=== PATIENT | female | born 1930 | race Hispanic/Latino ===

== ENCOUNTER 2017-10-15 05:58 | Day surgery (SDC) | payer MEDICARE ==
[2017-10-13 14:40] VITALS: BP 188/83
[2017-10-13 15:42] LABS: BASOPHILS % (AUTO) 0.4 % (0.0-5.0); EOSINOPHILS % (AUTO) 2.3 % (0.0-8.0); HEMATOCRIT 35.7 % (36-48); LYMPHOCYTES % (AUTO) 27.6 % (21.0-51.0); MEAN CORPUSCULAR HEMOGLOBIN 30.4 pg (27.0-33.0); MEAN CORPUSCULAR HGB CONC 33.2 g/dL (32.0-36.0); MEAN CORPUSCULAR VOLUME 91.5 fL (79-99); MONOCYTES % (AUTO) 7.6 % (3.0-13.0); NEUTROPHILS % (AUTO) 62.1 % (40.0-77.0); PLATELET COUNT (AUTO) 249 K/uL (130-400); RED CELL DISTRIBUTION WIDTH 15.3 % (11.0-15.5); WHITE BLOOD COUNT (AUTO) 8.4 K/uL (4.8-10.8)
[2017-10-13 15:54] LABS: CREATININE 1.2 mg/dL (0.5-1.5); POTASSIUM 4.4 mmol/L (3.5-5.1)
[2017-10-13 15:58] LABS: INR 0.98 (0.85-1.15); PROTHROMBIN TIME 10.3 SEC (9.6-11.6)
[2017-10-15] VITALS (10 sets, daily range): BP systolic 126–206; BP diastolic 44–98
[~2017-10-15] VITALS: Ht 148.6 cm; Wt 66.7 kg
[~2017-10-15 05:58] MED LIST: ALLO100T PO; ASPI-1181 PO; FURO20TA4 PO; GLIP10TA9 PO; LOSA25TA21 PO; METF10004 PO; MIRT15TA6 PO; NITR0.4T50 SL; SERT50TA12 PO
[2017-10-15] MEDS ORDERED: CEFAZOLIN SODIUM 1 GM VIAL IVP SCH (06:00)
[2017-10-15] MEDS ORDERED: SODIUM CHLORIDE 0.9% 1000ML 1,000 ML IV SCH (06:00)
[2017-10-15] MEDS ORDERED: CEFAZOLIN 1GM / D5W 50ML 150 ML ONE (07:10)
[2017-10-15] MEDS ORDERED: LIDOCAINE HCL 1% MDV 50ML VIAL ONE (07:10)
[2017-10-15] MEDS ORDERED: BUPIVACAINE/PF 0.25% 30ML VIAL IJ ONE (07:10)
[2017-10-15] MEDS ORDERED: MIDAZOLAM HCL 1 MG/ML 2ML VIAL ONE ×2 (07:33→08:10)
[2017-10-15] MEDS ORDERED: MEPERIDINE-PF 25 MG/ML SYG ONE ×2 (07:33→08:10)
[2017-10-15] MEDS ORDERED: ACETAMINOPHEN-CODEINE 300/30MG TAB PO PRN ×3 (09:30)
[2017-10-15] MEDS ORDERED: NITROGLYCERIN 0.4 MG SL TAB SL PRN (09:30)
[2017-10-15] MEDS ORDERED: ACETAMINOPHEN 325 MG TAB PO PRN (09:30)
[2017-10-15] MEDS ORDERED: TYL3 PO (09:31)
[2017-10-15] MEDS ORDERED: METFORMIN HCL 500 MG TABLET PO SCH (17:00)
[2017-10-15] MEDS ORDERED: MIRTAZAPINE 15 MG TABLET PO SCH (21:00)
[2017-10-15] MEDS ORDERED: SERTRALINE HCL 50 MG TABLET PO SCH (21:00)
[2017-10-16] MEDS ORDERED: LOSARTAN 50 MG TABLET PO SCH (09:00)
[2017-10-16] MEDS ORDERED: ASPIRIN 81 MG EC TAB PO SCH (09:00)
[2017-10-16] MEDS ORDERED: ALLOPURINOL 100 MG TABLET PO SCH (09:00)
[2017-10-16] MEDS ORDERED: FUROSEMIDE 20 MG TABLET PO SCH (09:00)
[2017-10-16] MEDS ORDERED: GLIPIZIDE 5 MG TABLET PO SCH (17:00)
== END 2017-10-15 13:30 | disposition home or self-care (01) ==
LOC: DAH 05:58
PROVIDERS: ATTEND Internal Medicine Cardiovascular Disease
DX: Z45.02 Encounter for adjustment and management of automatic implantable cardiac defibrillator (principal); I50.42 Chronic combined systolic (congestive) and diastolic (congestive) heart failure; Z95.1 Presence of aortocoronary bypass graft; I10 Essential (primary) hypertension; E11.9 Type 2 diabetes mellitus without complications; K21.9 Gastro-esophageal reflux disease without esophagitis; K59.09 Other constipation
CPT/HCPCS: 33264; 36415; 80048; 82948 ×2; 85025; 85610; 85730; 93005; 99156; 99157; A4606; C1882; J0690; J2175 ×2; J2250 ×2; J3490 ×2; J7030; 99152; 99153

== ENCOUNTER 2018-06-19 09:51 | Inpatient (IN) | payer MEDICARE ==
[2018-06-18] MEDS: ATORVASTATIN CALCIUM 10 MG TABLET PO SCH (21:00)
[~2018-06-19] VITALS: Ht 149.9 cm; Wt 64.5 kg
[~2018-06-19 09:51] MED LIST changes: +APIX5TAB PO; -GLIP10TA9 PO; +LOSA25TA16 PO; -LOSA25TA21 PO; +METF-444 PO; -METF10004 PO; -NITR0.4T50 SL; +ROSU5TAB11 PO
[2018-06-19 10:31] LABS: BASOPHILS % (AUTO) 0.5 % (0.0-5.0); EOSINOPHILS % (AUTO) 0.7 % (0.0-8.0); HEMATOCRIT 28.1 % (36-48); LYMPHOCYTES % (AUTO) 10.6 % (21.0-51.0); MEAN CORPUSCULAR HEMOGLOBIN 27.8 pg (27.0-33.0); MEAN CORPUSCULAR HGB CONC 31.4 g/dL (32.0-36.0); MEAN CORPUSCULAR VOLUME 88.6 fL (79-99); MONOCYTES % (AUTO) 6.4 % (3.0-13.0); NEUTROPHILS % (AUTO) 81.8 % (40.0-77.0); PLATELET COUNT (AUTO) 334 K/uL (130-400); RED BLOOD CELL COUNT(AUTO) 3.17 MIL/uL (4.00-5.50); RED CELL DISTRIBUTION WIDTH 17.9 % (11.0-15.5); WHITE BLOOD COUNT (AUTO) 11.8 K/uL (4.8-10.8)
[2018-06-19] MEDS ORDERED: ASPIRIN 325 MG TABLET ONE (10:40)
[2018-06-19 11:16] LABS: CREATININE 1.5 mg/dL (0.5-1.5); POTASSIUM 5.4 mmol/L (3.5-5.1)
[2018-06-19 11:22] LABS: INR 1.12 (0.85-1.15); PARTIAL THROMBOPLASTIN TIME 52.7 SEC (26.3-35.5); PROTHROMBIN TIME 11.7 SEC (9.6-11.6)
[2018-06-19 11:24] LABS: ALBUMIN 3.1 g/dL (3.5-5.0); BILIRUBIN,TOTAL 0.5 mg/dL (0.2-1.0); TOTAL PROTEIN, SERUM 7.5 g/dL (6.0-8.3)
[2018-06-19 12:17] LABS: APPEARANCE,URINE Cloudy (CLEAR); BILIRUBIN,URINE Negative (NEGATIVE); COLOR,URINE Yellow (YELLOW); GLUCOSE, URINE (UA) Negative (NEGATIVE); KETONES,URINE Negative (NEGATIVE); LEUKOCYTE ESTERASE ,URINE Trace (NEGATIVE); NITRATE,URINE Negative (NEGATIVE); OCCULT BLOOD,URINE Negative (NEGATIVE); PH,URINE 6.5 (5.0-8.0); PROTEIN,URINE Negative (NEGATIVE); UROBILINOGEN,URINE 0.2 mg/dL (0.2-1.0)
[2018-06-19 12:40] LABS: BACTERIA,URINE Rare /HPF (None Seen); RBC,URINE 0-1 /HPF (0-1); SQUAMOUS EPITHELIAL CELL,UR Few /HPF (0-2); WBC,URINE None Seen /HPF (0-1)
[2018-06-19 15:55] VITALS: BP 148/45
[2018-06-19] MEDS ORDERED: MORPHINE SULFATE 2 MG/ML 1ML SYG IVP PRN (16:00)
[2018-06-19] MEDS ORDERED: GLUCAGON 1MG KIT 1 MG ML IM PRN (16:00)
[2018-06-19] MEDS ORDERED: DEXTROSE 50%-WATER 50 ML DISP.SYRIN IV PRN (16:00)
[2018-06-19] MEDS ORDERED: IPRATROPIUM 0.5 MG/2.5 ML INH IH PRN (16:15)
[2018-06-19] MEDS ORDERED: BENZONATATE 100 MG CAPSULE PO PRN (16:15)
[2018-06-19] MEDS ORDERED: INSU100C14 SQ (16:39)
[2018-06-19] MEDS ORDERED: METF-444 PO (16:39)
[2018-06-19] MEDS ORDERED: SITA100T12 PO (16:39)
[2018-06-19] MEDS ORDERED: BENZ-51 PO (16:39)
[2018-06-19] MEDS ORDERED: GLYB5TAB8 PO (16:39)
[2018-06-19] MEDS ORDERED: METF-446 PO (16:39)
[2018-06-19] MEDS: INSULIN R PO SS1/2 SQ SCH ×2 (17:37→21:00)
[2018-06-19 18:38] LABS: CREATINE KINASE MB 2.3 ng/mL (0.5-3.6); TROPONIN I 0.06 ng/mL (0.00-0.06)
[2018-06-19 19:51] VITALS: BP 148/59
[2018-06-19] MEDS ORDERED: GUAI120L62 PO (19:53)
[2018-06-19] MEDS ORDERED: ALPR0.5T PO (19:53)
[2018-06-19] MEDS ORDERED: SODPOLY15G PO (19:53)
[2018-06-19] MEDS ORDERED: FURO10VI4 IV (19:53)
[2018-06-19] MEDS ORDERED: MIRTAZAPINE 15 MG TABLET PO SCH (21:00)
[2018-06-19] MEDS ORDERED: SERTRALINE HCL 50 MG TABLET PO SCH (21:00)
[2018-06-19] MEDS ORDERED: ENTRESTO PO SCH (21:00)
[2018-06-19] MEDS ORDERED: NON-FORMULARY MEDICATION 1 EACH (Rosuvastatin Calcium 5 MG) PO SCH (21:00)
[2018-06-19] MEDS ORDERED: APIXABAN 5 MG TABLET PO SCH (21:00)
[2018-06-19] MEDS: FUROSEMIDE 10 MG/ML 4ML VIAL IV SCH (21:02)
[2018-06-19] MEDS: ATORVASTATIN CALCIUM 10 MG TABLET PO SCH (21:02)
[2018-06-19] MEDS: ALLOPURINOL 100 MG TABLET PO SCH (21:03)
[2018-06-19] MEDS: APIXABAN 5 MG TABLET PO SCH (21:03)
[2018-06-19] MEDS: GUAIFENESIN-CODEINE 5 ML SYRUP PO PRN (21:03)
[2018-06-19] MEDS: SODIUM POLYSTYRENE SULFONATE 15 GM/60 ML ML PO SCH (21:03)
[2018-06-19] MEDS: ALPRAZOLAM 0.5 MG TABLET PO PRN (21:03)
[2018-06-19] MEDS: MIRTAZAPINE 15 MG TABLET PO SCH (21:03)
[2018-06-19] MEDS: IPRATROPIUM/ALBUTEROL SULFATE 3 ML SOLUTION IH SCH (23:12)
[2018-06-19 23:32] VITALS: BP 154/56
[2018-06-20 01:01] LABS: CREATINE KINASE MB 1.7 ng/mL (0.5-3.6); TROPONIN I 0.05 ng/mL (0.00-0.06)
[2018-06-20] MEDS: GUAIFENESIN-CODEINE 5 ML SYRUP PO PRN ×3 (03:05→22:51)
[2018-06-20 04:20] VITALS: BP 153/76
[2018-06-20] MEDS: IPRATROPIUM/ALBUTEROL SULFATE 3 ML SOLUTION IH SCH (06:13)
[2018-06-20] MEDS: INSULIN R PO SS1/2 SQ SCH ×4 (06:47→21:00)
[2018-06-20 07:01] LABS: BASOPHILS % (AUTO) 0.6 % (0.0-5.0); EOSINOPHILS % (AUTO) 1.8 % (0.0-8.0); HEMATOCRIT 25.5 % (36-48); LYMPHOCYTES % (AUTO) 19.5 % (21.0-51.0); MEAN CORPUSCULAR HEMOGLOBIN 28.4 pg (27.0-33.0); MEAN CORPUSCULAR HGB CONC 32.6 g/dL (32.0-36.0); MEAN CORPUSCULAR VOLUME 87.2 fL (79-99); MONOCYTES % (AUTO) 7.8 % (3.0-13.0); NEUTROPHILS % (AUTO) 70.3 % (40.0-77.0); NUCLEATED RED BLOOD CELLS 0.1 % (0.0-0.19); PLATELET COUNT (AUTO) 318 K/uL (130-400); RED BLOOD CELL COUNT(AUTO) 2.92 MIL/uL (4.00-5.50); RED CELL DISTRIBUTION WIDTH 17.5 % (11.0-15.5)
[2018-06-20 07:07] LABS: CREATININE 1.6 mg/dL (0.5-1.5); POTASSIUM 3.9 mmol/L (3.5-5.1)
[2018-06-20 07:49] VITALS: BP 130/61
[2018-06-20] MEDS ORDERED: NON-FORMULARY MEDICATION 1 EACH (Aspirin (Aspirin EC) 81 MG) PO SCH (09:00)
[2018-06-20] MEDS ORDERED: FUROSEMIDE 20 MG TABLET PO SCH (09:00)
[2018-06-20] MEDS ORDERED: LOSARTAN 50 MG TABLET PO SCH (09:00)
[2018-06-20] MEDS ORDERED: POTASSIUM CHLORIDE 10 MEQ/TAB.SA PO SCH (09:00)
[2018-06-20] MEDS: SERTRALINE HCL 50 MG TABLET PO SCH (10:20)
[2018-06-20] MEDS: PANTOPRAZOLE SODIUM 40 MG TABLET.DR PO SCH (10:20)
[2018-06-20] MEDS: APIXABAN 5 MG TABLET PO SCH (10:20)
[2018-06-20] MEDS: ASPIRIN 81MG TAB.CHEW PO SCH (10:20)
[2018-06-20] MEDS: FUROSEMIDE 10 MG/ML 4ML VIAL IV SCH ×2 (10:20→18:09)
[2018-06-20] MEDS: SULFAMETHOX-TMP DS 800/160 TAB PO SCH (10:20)
[2018-06-20] MEDS ORDERED: IPRATROPIUM/ALBUTEROL SULFATE 3 ML SOLUTION IH PRN (10:30)
[2018-06-20 10:56] VITALS: BP 141/54
[2018-06-20] MEDS ORDERED: ALLOPURINOL 100 MG TABLET PO SCH (12:00)
[2018-06-20 16:14] VITALS: BP 113/43
[2018-06-20 19:31] VITALS: BP 138/61
[2018-06-20] MEDS ORDERED: SACU1TAB PO (20:13)
[2018-06-20] MEDS: SODIUM POLYSTYRENE SULFONATE 15 GM/60 ML ML PO SCH (20:30)
[2018-06-20] MEDS: MIRTAZAPINE 15 MG TABLET PO SCH (22:05)
[2018-06-20] MEDS: APIXABAN 2.5 MG TABLET PO SCH (22:05)
[2018-06-20] MEDS: ATORVASTATIN CALCIUM 10 MG TABLET PO SCH (22:05)
[2018-06-20] MEDS: ALLOPURINOL 100 MG TABLET PO SCH (22:05)
[2018-06-21] VITALS (7 sets, daily range): BP systolic 119–153; BP diastolic 49–75
[2018-06-21 04:01] LABS: ALBUMIN 2.5 g/dL (3.5-5.0); BILIRUBIN,TOTAL 0.4 mg/dL (0.2-1.0); CREATININE 2.2 mg/dL (0.5-1.5); POTASSIUM 3.8 mmol/L (3.5-5.1)
[2018-06-21] MEDS: INSULIN R PO SS1/2 SQ SCH ×4 (06:00→21:00)
[2018-06-21] MEDS: FUROSEMIDE 10 MG/ML 4ML VIAL IV SCH (07:01)
[2018-06-21] MEDS: SULFAMETHOX-TMP DS 800/160 TAB PO SCH (09:48)
[2018-06-21] MEDS: APIXABAN 2.5 MG TABLET PO SCH ×2 (09:49→22:19)
[2018-06-21] MEDS: SERTRALINE HCL 50 MG TABLET PO SCH (09:49)
[2018-06-21] MEDS: PANTOPRAZOLE SODIUM 40 MG TABLET.DR PO SCH (09:49)
[2018-06-21] MEDS: ASPIRIN 81MG TAB.CHEW PO SCH (09:49)
[2018-06-21] MEDS: VALSARTAN PO SCH ×2 (09:50→22:20)
[2018-06-21] MEDS: SACUBITRIL PO SCH ×2 (09:50→22:20)
[2018-06-21] MEDS: GUAIFENESIN-CODEINE 5 ML SYRUP PO PRN ×2 (14:00→22:17)
[2018-06-21] MEDS: SODIUM POLYSTYRENE SULFONATE 15 GM/60 ML ML PO SCH (20:30)
[2018-06-21] MEDS ORDERED: LACTULOSE 20 GM/30 ML UDCUP PO SCH (21:00)
[2018-06-21] MEDS: LACTULOSE 20 GM/30 ML UDCUP PO SCH (21:00)
[2018-06-21] MEDS ORDERED: LORAZEPAM 0.5 MG TABLET PO PRN (21:15)
[2018-06-21] MEDS: ALPRAZOLAM 0.5 MG TABLET PO PRN (22:18)
[2018-06-21] MEDS: ATORVASTATIN CALCIUM 10 MG TABLET PO SCH (22:18)
[2018-06-21] MEDS: MIRTAZAPINE 15 MG TABLET PO SCH (22:19)
[2018-06-21] MEDS: ALLOPURINOL 100 MG TABLET PO SCH (22:19)
[2018-06-22] VITALS (7 sets, daily range): BP systolic 108–170; BP diastolic 50–90
[2018-06-22 05:01] LABS: HEMATOCRIT 25.1 % (36-48); MEAN CORPUSCULAR HEMOGLOBIN 28.4 pg (27.0-33.0); MEAN CORPUSCULAR HGB CONC 32.2 g/dL (32.0-36.0); MEAN CORPUSCULAR VOLUME 88.3 fL (79-99); PLATELET COUNT (AUTO) 337 K/uL (130-400); RED BLOOD CELL COUNT(AUTO) 2.84 MIL/uL (4.00-5.50); RED CELL DISTRIBUTION WIDTH 17.7 % (11.0-15.5); WHITE BLOOD COUNT (AUTO) 11.5 K/uL (4.8-10.8)
[2018-06-22 05:06] LABS: POTASSIUM 3.6 mmol/L (3.5-5.1)
[2018-06-22] MEDS: INSULIN R PO SS1/2 SQ SCH ×4 (05:56→21:18)
[2018-06-22] MEDS: SACUBITRIL PO SCH ×2 (09:00→20:07)
[2018-06-22] MEDS: LACTULOSE 20 GM/30 ML UDCUP PO SCH ×2 (09:00→20:07)
[2018-06-22] MEDS: VALSARTAN PO SCH ×2 (09:00→20:07)
[2018-06-22] MEDS: ASPIRIN 81MG TAB.CHEW PO SCH (10:23)
[2018-06-22] MEDS: PANTOPRAZOLE SODIUM 40 MG TABLET.DR PO SCH (10:23)
[2018-06-22] MEDS: SERTRALINE HCL 50 MG TABLET PO SCH (10:23)
[2018-06-22] MEDS: SULFAMETHOX-TMP DS 800/160 TAB PO SCH (10:23)
[2018-06-22] MEDS: APIXABAN 2.5 MG TABLET PO SCH ×2 (10:23→20:06)
[2018-06-22] MEDS: CARVEDILOL 6.25 MG TABLET PO SCH ×2 (10:26→20:06)
[2018-06-22] MEDS: FUROSEMIDE 40 MG TABLET PO SCH (10:27)
[2018-06-22] MEDS: SODIUM POLYSTYRENE SULFONATE 15 GM/60 ML ML PO SCH (17:10)
[2018-06-22] MEDS: GUAIFENESIN-CODEINE 5 ML SYRUP PO PRN (17:42)
[2018-06-22] MEDS: ALPRAZOLAM 0.5 MG TABLET PO PRN (20:06)
[2018-06-22] MEDS: MIRTAZAPINE 15 MG TABLET PO SCH (20:06)
[2018-06-22] MEDS: ATORVASTATIN CALCIUM 10 MG TABLET PO SCH (20:06)
[2018-06-22] MEDS: ALLOPURINOL 100 MG TABLET PO SCH (20:07)
[2018-06-23 03:18] VITALS: BP 133/56
[2018-06-23 04:07] LABS: POTASSIUM 4.2 mmol/L (3.5-5.1)
[2018-06-23] MEDS: INSULIN R PO SS1/2 SQ SCH ×2 (05:47→13:45)
[2018-06-23] MEDS: LACTULOSE 20 GM/30 ML UDCUP PO SCH (08:00)
[2018-06-23 08:17] VITALS: BP 127/50
[2018-06-23] MEDS: VALSARTAN PO SCH (09:00)
[2018-06-23] MEDS: SACUBITRIL PO SCH (09:00)
[2018-06-23] MEDS: PANTOPRAZOLE SODIUM 40 MG TABLET.DR PO SCH (09:27)
[2018-06-23] MEDS: CARVEDILOL 6.25 MG TABLET PO SCH (09:27)
[2018-06-23] MEDS: SULFAMETHOX-TMP DS 800/160 TAB PO SCH (09:27)
[2018-06-23] MEDS: FUROSEMIDE 40 MG TABLET PO SCH (09:28)
[2018-06-23] MEDS: SERTRALINE HCL 50 MG TABLET PO SCH (09:28)
[2018-06-23] MEDS: ASPIRIN 81MG TAB.CHEW PO SCH (09:28)
[2018-06-23] MEDS: APIXABAN 2.5 MG TABLET PO SCH (09:28)
[2018-06-23] MEDS ORDERED: FURO40TA7 PO (09:43)
[2018-06-23] MEDS ORDERED: CARV6.2579 PO (09:43)
[2018-06-23] MEDS ORDERED: APIX2.5T PO (09:43)
[2018-06-23] MEDS ORDERED: ISOS30TA6 PO (09:46)
[2018-06-23] MEDS ORDERED: HYDR-3420 PO (09:46)
[2018-06-23 12:00] VITALS: BP 94/40
== END 2018-06-23 14:05 | disposition home health service (06) | DRG 291 ==
LOC: EDH 09:51 → EDHIP 14:40 → 2DH 15:32
PROVIDERS: ADMIT Internal Medicine; ATTEND Internal Medicine
DX: I13.0 Hypertensive heart and chronic kidney disease with heart failure and stage 1 through stage 4 chronic kidney disease, or unspecified chronic kidney disease (principal); I50.23 Acute on chronic systolic (congestive) heart failure; N17.1 Acute kidney failure with acute cortical necrosis; I48.92 Unspecified atrial flutter; J84.9 Interstitial pulmonary disease, unspecified; I25.10 Atherosclerotic heart disease of native coronary artery without angina pectoris; R05 Cough; E11.65 Type 2 diabetes mellitus with hyperglycemia; E87.5 Hyperkalemia; I25.5 Ischemic cardiomyopathy; E11.22 Type 2 diabetes mellitus with diabetic chronic kidney disease; E78.5 Hyperlipidemia, unspecified; G47.30 Sleep apnea, unspecified; I48.0 Paroxysmal atrial fibrillation; I48.2 Chronic atrial fibrillation; K21.9 Gastro-esophageal reflux disease without esophagitis; N18.9 Chronic kidney disease, unspecified; I25.2 Old myocardial infarction; Z79.01 Long term (current) use of anticoagulants; Z85.528 Personal history of other malignant neoplasm of kidney; Z90.5 Acquired absence of kidney; Z95.0 Presence of cardiac pacemaker; Z95.1 Presence of aortocoronary bypass graft
CPT/HCPCS: 36415; 71045; 71250; 80048; 80053; 81001; 82550; 82553; 82948; 83874; 83880; 84484; 85025; 85027; 85610; 85730; 93005; 94060; 94640; 94664; 97039; J1815; J1940; Q2038

== ENCOUNTER 2018-07-01 17:14 | Inpatient (IN) | payer MEDICARE ==
[~2018-07-01] VITALS: Ht 144.8 cm; Wt 65.9 kg
[~2018-07-01 17:14] MED LIST changes: +ALPR0.5T PO; +APIX2.5T PO; -APIX5TAB PO; +BENZ-51 PO; +CARV6.2579 PO; -FURO20TA4 PO; +FURO40TA7 PO; +GLYB5TAB8 PO; +GUAI120L62 PO; +HYDR-3420 PO; +INSU100C14 SQ; +ISOS30TA6 PO; -LOSA25TA16 PO; +METF-446 PO; +SITA100T12 PO; +SODPOLY15G PO
[2018-07-01] MEDS ORDERED: ACETAMINOPHEN 325 MG TAB PO PRN (18:00)
[2018-07-01] MEDS ORDERED: ONDANSETRON HCL 4 MG/2 ML VIAL IV PRN (18:00)
[2018-07-01 18:01] VITALS: BP 139/67
[2018-07-01] MEDS ORDERED: ALPRAZOLAM 0.5 MG TABLET PO PRN (18:30)
[2018-07-01 18:33] LABS: HEMATOCRIT 23.3 % (36-48); MEAN CORPUSCULAR HEMOGLOBIN 27.1 pg (27.0-33.0); MEAN CORPUSCULAR HGB CONC 31.2 g/dL (32.0-36.0); MEAN CORPUSCULAR VOLUME 87.1 fL (79-99); PLATELET COUNT (AUTO) 290 K/uL (130-400); RED BLOOD CELL COUNT(AUTO) 2.67 MIL/uL (4.00-5.50); RED CELL DISTRIBUTION WIDTH 17.9 % (11.0-15.5); WHITE BLOOD COUNT (AUTO) 10.9 K/uL (4.8-10.8)
[2018-07-01] MEDS ORDERED: GLUCAGON 1MG KIT 1 MG ML IM PRN (18:45)
[2018-07-01] MEDS ORDERED: POTASSIUM CHLORIDE 20MEQ/100ML 100 ML IV PRN (18:45)
[2018-07-01] MEDS ORDERED: SODIUM CHLORIDE 0.9% 10 ML VIAL IVP SCH (18:45)
[2018-07-01] MEDS ORDERED: DEXTROSE 50%-WATER 50 ML DISP.SYRIN IV PRN (18:45)
[2018-07-01] MEDS ORDERED: POTASSIUM CHLORIDE 10% ELIXIR 20 MEQ/15 ML UDCUP PO PRN (18:45)
[2018-07-01] MEDS ORDERED: LIDOCAINE HCL-MPF 1% 2ML VIAL IJ PRN (18:45)
[2018-07-01] MEDS: FUROSEMIDE IVP SCH (18:49)
[2018-07-01] MEDS: [UNRECOGNIZED DRUG - OTHER] IVP SCH (18:49)
[2018-07-01 18:50] LABS: INR 1.15 (0.85-1.15); PARTIAL THROMBOPLASTIN TIME 41.5 SEC (26.3-35.5)
[2018-07-01 18:52] LABS: ALBUMIN 2.6 g/dL (3.5-5.0); BILIRUBIN,TOTAL 0.4 mg/dL (0.2-1.0); CREATININE 1.6 mg/dL (0.5-1.5); POTASSIUM 3.6 mmol/L (3.5-5.1); TOTAL PROTEIN, SERUM 7.1 g/dL (6.0-8.3)
[2018-07-01 19:06] LABS: B-TYPE NATRIURETIC PEPTIDE 1280 pg/mL (0-100)
[2018-07-01 19:39] VITALS: BP 142/61
[2018-07-01] MEDS: BENZONATATE 100 MG CAPSULE PO SCH (20:11)
[2018-07-01] MEDS: CARVEDILOL 6.25 MG TABLET PO SCH (20:11)
[2018-07-01] MEDS: HYDRALAZINE HCL 10 MG TABLET PO SCH (20:12)
[2018-07-01] MEDS: MIRTAZAPINE 15 MG TABLET PO SCH (20:12)
[2018-07-01 20:26] LABS: APPEARANCE,URINE Clear (CLEAR); BILIRUBIN,URINE Negative (NEGATIVE); COLOR,URINE Yellow (YELLOW); GLUCOSE, URINE (UA) 500 mg/dL (NEGATIVE); KETONES,URINE Negative (NEGATIVE); LEUKOCYTE ESTERASE ,URINE Negative (NEGATIVE); NITRATE,URINE Negative (NEGATIVE); OCCULT BLOOD,URINE Negative (NEGATIVE); PROTEIN,URINE Negative (NEGATIVE); UROBILINOGEN,URINE 0.2 mg/dL (0.2-1.0)
[2018-07-01 20:38] LABS: BACTERIA,URINE None Seen /HPF (None Seen); RBC,URINE None Seen /HPF (0-1); SQUAMOUS EPITHELIAL CELL,UR 0-2 /HPF (0-2); WBC,URINE None Seen /HPF (0-1)
[2018-07-01] MEDS ORDERED: APIXABAN 2.5 MG TABLET PO SCH (21:00)
[2018-07-01] MEDS ORDERED: ATORVASTATIN CALCIUM 10 MG TABLET PO SCH (21:00)
[2018-07-01] MEDS ORDERED: MIRTAZAPINE 15 MG TABLET PO SCH (21:00)
[2018-07-01] MEDS: INSULIN R PO SSI SQ SCH (21:48)
[2018-07-01 23:54] VITALS: BP 114/53
[2018-07-02] MEDS: POTASSIUM CHLORIDE 20 MEQ ERTAB PO PRN ×3 (01:15→04:43)
[2018-07-02 03:46] VITALS: BP 112/55
[2018-07-02 04:17] LABS: CREATININE 1.4 mg/dL (0.5-1.5); POTASSIUM 3.3 mmol/L (3.5-5.1)
[2018-07-02] MEDS: INSULIN R PO SSI SQ SCH ×2 (06:18→11:56)
[2018-07-02 07:58] VITALS: BP 140/53
[2018-07-02] MEDS: HYDRALAZINE HCL 10 MG TABLET PO SCH ×2 (08:25→21:36)
[2018-07-02] MEDS: ASPIRIN 81MG TAB.CHEW PO SCH (08:26)
[2018-07-02] MEDS: CARVEDILOL 6.25 MG TABLET PO SCH ×2 (08:26→21:35)
[2018-07-02] MEDS: PANTOPRAZOLE SODIUM 40 MG TABLET.DR PO SCH (08:27)
[2018-07-02] MEDS: POTASSIUM CHLORIDE 10 MEQ/TAB.SA PO SCH ×2 (08:27→21:35)
[2018-07-02] MEDS: BENZONATATE 100 MG CAPSULE PO SCH ×3 (08:27→21:35)
[2018-07-02] MEDS: ISOSORBIDE MONO 30MG TAB SR PO SCH (08:27)
[2018-07-02] MEDS: ALLOPURINOL 300 MG TABLET PO SCH (08:28)
[2018-07-02] MEDS ORDERED: NON-FORMULARY MEDICATION 1 EACH (Aspirin (Aspirin EC) 81 MG) PO SCH (09:00)
[2018-07-02 11:04] VITALS: BP 112/47
[2018-07-02] MEDS ORDERED: PHARMACY COMMUNICATION MISC SCH ×2 (11:45→15:30)
[2018-07-02] MEDS: MAGNESIUM HYDROXIDE 30 ML/UDCUP PO SCH (11:51)
[2018-07-02] MEDS: FERROUS FUMARATE 324 MG TABLET PO SCH ×2 (11:54→21:35)
[2018-07-02] MEDS: FUROSEMIDE IVP SCH (15:50)
[2018-07-02] MEDS: [UNRECOGNIZED DRUG - OTHER] IVP SCH (15:50)
[2018-07-02 16:00] VITALS: BP 132/56
[2018-07-02] MEDS: INSULIN R PO SS1/2 SQ SCH (17:04)
[2018-07-02 19:54] VITALS: BP 128/60
[2018-07-02] MEDS: MIRTAZAPINE 15 MG TABLET PO SCH (21:34)
[2018-07-02] MEDS: DOCUSATE SODIUM 100 MG CAP PO SCH (21:35)
[2018-07-02 23:46] VITALS: BP 126/50
[2018-07-03 03:57] LABS: HEMATOCRIT 23.6 % (36-48); MEAN CORPUSCULAR HEMOGLOBIN 26.3 pg (27.0-33.0); MEAN CORPUSCULAR HGB CONC 30.5 g/dL (32.0-36.0); MEAN CORPUSCULAR VOLUME 86.1 fL (79-99); PLATELET COUNT (AUTO) 299 K/uL (130-400); RED BLOOD CELL COUNT(AUTO) 2.74 MIL/uL (4.00-5.50); RED CELL DISTRIBUTION WIDTH 18.1 % (11.0-15.5); WHITE BLOOD COUNT (AUTO) 12.4 K/uL (4.8-10.8)
[2018-07-03 03:58] VITALS: BP 127/57
[2018-07-03 04:23] LABS: % IRON SATURATION 62.7 % (22-44)
[2018-07-03 04:26] LABS: ALBUMIN 2.7 g/dL (3.5-5.0); BILIRUBIN,TOTAL 0.4 mg/dL (0.2-1.0); CREATININE 1.5 mg/dL (0.5-1.5); PHOSPHORUS 3.3 mg/dL (2.5-4.9); POTASSIUM 3.8 mmol/L (3.5-5.1); THYROID STIMULATING HORMONE 5.19 uIU/mL (0.36-3.74); TOTAL PROTEIN, SERUM 7.3 g/dL (6.0-8.3); URIC ACID 7.1 mg/dL (2.6-7.2)
[2018-07-03 05:02] LABS: ERYTHROCYTE SEDIMENTATION RATE 97 MM/HR (0-30)
[2018-07-03] MEDS: INSULIN R PO SS1/2 SQ SCH (06:18)
[2018-07-03] MEDS: MAGNESIUM HYDROXIDE 30 ML/UDCUP PO SCH (07:08)
[2018-07-03 07:27] VITALS: BP 132/62
[2018-07-03 08:01] VITALS: BP 132/62
[2018-07-03] MEDS: DOCUSATE SODIUM 100 MG CAP PO SCH (08:01)
[2018-07-03] MEDS: ALLOPURINOL 300 MG TABLET PO SCH (08:01)
[2018-07-03] MEDS: POTASSIUM CHLORIDE 10 MEQ/TAB.SA PO SCH (08:01)
[2018-07-03] MEDS: FERROUS FUMARATE 324 MG TABLET PO SCH (08:01)
[2018-07-03] MEDS: CARVEDILOL 6.25 MG TABLET PO SCH (08:01)
[2018-07-03] MEDS: PANTOPRAZOLE SODIUM 40 MG TABLET.DR PO SCH (08:01)
[2018-07-03] MEDS: ASPIRIN 81MG TAB.CHEW PO SCH (08:01)
[2018-07-03] MEDS: BENZONATATE 100 MG CAPSULE PO SCH (08:01)
[2018-07-03] MEDS: ISOSORBIDE MONO 30MG TAB SR PO SCH (08:02)
[2018-07-03] MEDS ORDERED: MAGNESIUM HYDROXIDE 30 ML/UDCUP PO SCH (08:15)
[2018-07-03] MEDS ORDERED: HYDRALAZINE HCL 10 MG TABLET PO SCH (09:00)
[2018-07-03] MEDS ORDERED: FOLIC ACID/VITAMIN B COMP W-C 1 MG CAPSULE PO SCH (09:00)
[2018-07-03] MEDS ORDERED: OMEP40CA37 PO (10:01)
[2018-07-03] MEDS ORDERED: FURO40TA5 PO (10:01)
[2018-07-03] MEDS ORDERED: HYDR20VI6 IV (10:01)
[2018-07-03] MEDS ORDERED: EPOETIN ALFA 10,000 UNIT/ML VIAL SQ SCH (10:56)
[2018-07-03] MEDS ORDERED: FUROSEMIDE 40 MG TABLET PO SCH (21:00)
== END 2018-07-03 12:36 | disposition home health service (06) | DRG 291 ==
LOC: EDH 17:14 → 2AH 17:35
PROVIDERS: ADMIT Hospitalist; ATTEND Hospitalist
DX: I13.0 Hypertensive heart and chronic kidney disease with heart failure and stage 1 through stage 4 chronic kidney disease, or unspecified chronic kidney disease (principal); I50.43 Acute on chronic combined systolic (congestive) and diastolic (congestive) heart failure; D62 Acute posthemorrhagic anemia; N17.9 Acute kidney failure, unspecified; N18.4 Chronic kidney disease, stage 4 (severe); T45.515A Adverse effect of anticoagulants, initial encounter; E11.21 Type 2 diabetes mellitus with diabetic nephropathy; E11.22 Type 2 diabetes mellitus with diabetic chronic kidney disease; E66.9 Obesity, unspecified; E78.2 Mixed hyperlipidemia; E87.6 Hypokalemia; G47.30 Sleep apnea, unspecified; I25.10 Atherosclerotic heart disease of native coronary artery without angina pectoris; D63.8 Anemia in other chronic diseases classified elsewhere; I48.2 Chronic atrial fibrillation; I25.5 Ischemic cardiomyopathy; R53.81 Other malaise; F41.9 Anxiety disorder, unspecified; M10.9 Gout, unspecified; R04.0 Epistaxis; Z68.31 Body mass index [BMI] 31.0-31.9, adult; Z95.0 Presence of cardiac pacemaker; Z79.01 Long term (current) use of anticoagulants; Z95.1 Presence of aortocoronary bypass graft; Z90.5 Acquired absence of kidney; Z85.528 Personal history of other malignant neoplasm of kidney; Y92.89 Other specified places as the place of occurrence of the external cause; Z83.3 Family history of diabetes mellitus; Z82.49 Family history of ischemic heart disease and other diseases of the circulatory system; Z80.6 Family history of leukemia; Z80.51 Family history of malignant neoplasm of kidney
CPT/HCPCS: 36415; 71045; 76700; 80048; 80053; 81001; 82728; 82948; 83540; 83550; 83880; 84100; 84443; 84550; 85027; 85610; 85651; 85730; 93005; J0885; J1815; J1940

== ENCOUNTER 2018-08-02 18:21 | Inpatient (IN) | payer MEDICARE ==
[~2018-08-02] VITALS: Ht 142.2 cm; Wt 63.5 kg
[~2018-08-02 18:21] MED LIST changes: -APIX2.5T PO; +FURO40TA5 PO; -FURO40TA7 PO; -GLYB5TAB8 PO; -HYDR-3420 PO; +HYDR20VI6 IV; -METF-446 PO; +OMEP40CA37 PO; -ROSU5TAB11 PO; -SERT50TA12 PO; -SODPOLY15G PO
[2018-08-02 19:49] LABS: BASOPHILS % (AUTO) 1.1 % (0.0-5.0); HEMATOCRIT 28.9 % (36-48); LYMPHOCYTES % (AUTO) 13.8 % (21.0-51.0); MEAN CORPUSCULAR HEMOGLOBIN 26.9 pg (27.0-33.0); MEAN CORPUSCULAR VOLUME 86.9 fL (79-99); MONOCYTES % (AUTO) 12.3 % (3.0-13.0); NEUTROPHILS % (AUTO) 69.8 % (40.0-77.0); PLATELET COUNT (AUTO) 219 K/uL (130-400); RED BLOOD CELL COUNT(AUTO) 3.33 MIL/uL (4.00-5.50); RED CELL DISTRIBUTION WIDTH 21.6 % (11.0-15.5)
[2018-08-02 19:52] VITALS: BP 114/56
[2018-08-02 20:06] LABS: INR 1.06 (0.85-1.15); PARTIAL THROMBOPLASTIN TIME 35.6 SEC (26.3-35.5); PROTHROMBIN TIME 11.1 SEC (9.6-11.6)
[2018-08-02 20:08] LABS: ALBUMIN 2.5 g/dL (3.5-5.0); BILIRUBIN,TOTAL 0.6 mg/dL (0.2-1.0); MAGNESIUM 2.5 mg/dL (1.80-2.40); POTASSIUM 4.4 mmol/L (3.5-5.1); TOTAL PROTEIN, SERUM 7.1 g/dL (6.0-8.3)
[2018-08-02] MEDS ORDERED: DEXTROSE 50%-WATER 50 ML DISP.SYRIN IV PRN (20:15)
[2018-08-02] MEDS ORDERED: GLUCAGON 1MG KIT 1 MG ML IM PRN (20:15)
[2018-08-02 20:17] LABS: B-TYPE NATRIURETIC PEPTIDE 1610 pg/mL (0-100)
[2018-08-02] MEDS: CARVEDILOL 6.25 MG TABLET PO SCH (21:00)
[2018-08-02] MEDS: INSULIN HUMULIN R 100 UNIT/ML 3ML SQ SCH (21:00)
[2018-08-02 21:44] LABS: APPEARANCE,URINE Clear (CLEAR); BILIRUBIN,URINE Negative (NEGATIVE); COLOR,URINE Yellow (YELLOW); GLUCOSE, URINE (UA) Negative (NEGATIVE); KETONES,URINE Negative (NEGATIVE); LEUKOCYTE ESTERASE ,URINE Negative (NEGATIVE); NITRATE,URINE Negative (NEGATIVE); OCCULT BLOOD,URINE Negative (NEGATIVE); PH,URINE 6.5 (5.0-8.0); PROTEIN,URINE Negative (NEGATIVE); UROBILINOGEN,URINE 0.2 mg/dL (0.2-1.0)
[2018-08-02] MEDS ORDERED: POTASSIUM CHLORIDE 20MEQ/100ML 100 ML IV PRN (21:45)
[2018-08-02] MEDS ORDERED: POTASSIUM CHLORIDE 10% ELIXIR 20 MEQ/15 ML UDCUP PO PRN (21:45)
[2018-08-02] MEDS ORDERED: METOLAZONE 2.5 MG TABLET PO ONE (21:45)
[2018-08-02] MEDS ORDERED: LIDOCAINE HCL-MPF 1% 2ML VIAL IJ PRN (21:45)
[2018-08-02] MEDS: FUROSEMIDE 100 MG in SODIUM CHLORIDE 0.9% 90 ML IV SCH (22:23)
[2018-08-02] MEDS: MIRTAZAPINE 15 MG TABLET PO SCH (22:48)
[2018-08-02] MEDS: APIXABAN 2.5 MG TABLET PO SCH (22:48)
[2018-08-02 23:54] VITALS: BP 91/45
[2018-08-03] MEDS ORDERED: ACETAMINOPHEN 325 MG TAB PO PRN (01:15)
[2018-08-03] MEDS ORDERED: ACETAMINOPHEN 325 MG TAB ONE ×2 (01:16→01:17)
[2018-08-03] MEDS ORDERED: BUSP7.5T7 PO (01:50)
[2018-08-03] MEDS ORDERED: MIRT30TA6 PO (01:50)
[2018-08-03] MEDS ORDERED: HYDR-3420 PO (01:50)
[2018-08-03] MEDS ORDERED: SPIR25TA6 PO (01:50)
[2018-08-03] MEDS ORDERED: LINA5TAB PO (01:50)
[2018-08-03] MEDS ORDERED: CARV6.25 PO (01:50)
[2018-08-03] MEDS ORDERED: BENZONATATE 100 MG CAPSULE PO ONE (02:26)
[2018-08-03] MEDS: BENZONATATE 100 MG CAPSULE PO SCH ×4 (02:37→20:47)
[2018-08-03 03:48] LABS: BASOPHILS % (AUTO) 0.8 % (0.0-5.0); HEMATOCRIT 28.5 % (36-48); LYMPHOCYTES % (AUTO) 11.2 % (21.0-51.0); MEAN CORPUSCULAR HEMOGLOBIN 27.8 pg (27.0-33.0); MEAN CORPUSCULAR HGB CONC 31.8 g/dL (32.0-36.0); MEAN CORPUSCULAR VOLUME 87.5 fL (79-99); MONOCYTES % (AUTO) 10.5 % (3.0-13.0); NEUTROPHILS % (AUTO) 73.5 % (40.0-77.0); NUCLEATED RED BLOOD CELLS 0.1 % (0.0-0.19); PLATELET COUNT (AUTO) 245 K/uL (130-400); RED BLOOD CELL COUNT(AUTO) 3.26 MIL/uL (4.00-5.50); RED CELL DISTRIBUTION WIDTH 21.5 % (11.0-15.5); WHITE BLOOD COUNT (AUTO) 8.8 K/uL (4.8-10.8)
[2018-08-03 03:51] LABS: HEMOGLOBIN A1C 7.7 % (4.0-6.0)
[2018-08-03 04:05] LABS: B-TYPE NATRIURETIC PEPTIDE 1750 pg/mL (0-100)
[2018-08-03 04:13] VITALS: BP 118/69
[2018-08-03] MEDS: INSULIN HUMULIN R 100 UNIT/ML 3ML SQ SCH ×4 (06:56→20:56)
[2018-08-03 07:30] VITALS: BP 142/69
[2018-08-03] MEDS: APIXABAN 2.5 MG TABLET PO SCH ×2 (08:52→20:48)
[2018-08-03] MEDS: ALLOPURINOL 100 MG TABLET PO SCH (08:52)
[2018-08-03] MEDS: PANTOPRAZOLE SODIUM 40 MG TABLET.DR PO SCH (08:53)
[2018-08-03] MEDS: CARVEDILOL 6.25 MG TABLET PO SCH ×2 (08:53→20:48)
[2018-08-03] MEDS ORDERED: BENZONATATE 100 MG CAPSULE PO SCH (09:00)
[2018-08-03] MEDS ORDERED: METOLAZONE 2.5 MG TABLET PO SCH (09:30)
[2018-08-03 11:12] VITALS: BP 154/94
[2018-08-03 16:24] VITALS: BP 115/38
[2018-08-03] MEDS: KETOROLAC TROMETHAMINE 15MG/ML IV PRN ×2 (17:42→23:53)
[2018-08-03] MEDS: FUROSEMIDE 100 MG in SODIUM CHLORIDE 0.9% 90 ML IV SCH (17:53)
[2018-08-03 19:58] VITALS: BP 112/45
[2018-08-03] MEDS: MIRTAZAPINE 15 MG TABLET PO SCH (20:47)
[2018-08-03 23:32] VITALS: BP 114/47
[2018-08-04] MEDS: MORPHINE SULFATE 2 MG/ML 1ML SYG IVP PRN (00:52)
[2018-08-04 03:17] VITALS: BP 124/59
[2018-08-04 04:30] LABS: EOSINOPHILS % (AUTO) 4.9 % (0.0-8.0); HEMATOCRIT 27.5 % (36-48); LYMPHOCYTES % (AUTO) 16.2 % (21.0-51.0); MEAN CORPUSCULAR HEMOGLOBIN 27.4 pg (27.0-33.0); MEAN CORPUSCULAR HGB CONC 31.6 g/dL (32.0-36.0); MEAN CORPUSCULAR VOLUME 86.7 fL (79-99); MONOCYTES % (AUTO) 9.6 % (3.0-13.0); NEUTROPHILS % (AUTO) 68.3 % (40.0-77.0); NUCLEATED RED BLOOD CELLS 0.1 % (0.0-0.19); PLATELET COUNT (AUTO) 241 K/uL (130-400); RED BLOOD CELL COUNT(AUTO) 3.17 MIL/uL (4.00-5.50); RED CELL DISTRIBUTION WIDTH 21.1 % (11.0-15.5); WHITE BLOOD COUNT (AUTO) 8.7 K/uL (4.8-10.8)
[2018-08-04 04:35] LABS: CREATININE 2.2 mg/dL (0.5-1.5); POTASSIUM 3.8 mmol/L (3.5-5.1)
[2018-08-04 04:51] LABS: B-TYPE NATRIURETIC PEPTIDE 1510 pg/mL (0-100)
[2018-08-04] MEDS: INSULIN HUMULIN R 100 UNIT/ML 3ML SQ SCH ×4 (06:48→21:05)
[2018-08-04 07:47] VITALS: BP 116/50
[2018-08-04] MEDS: CARVEDILOL 6.25 MG TABLET PO SCH ×2 (08:16→20:07)
[2018-08-04] MEDS: APIXABAN 2.5 MG TABLET PO SCH ×2 (08:16→20:07)
[2018-08-04] MEDS: BENZONATATE 100 MG CAPSULE PO SCH ×3 (08:17→20:07)
[2018-08-04] MEDS: ALLOPURINOL 100 MG TABLET PO SCH (08:17)
[2018-08-04] MEDS: PANTOPRAZOLE SODIUM 40 MG TABLET.DR PO SCH (08:17)
[2018-08-04 11:00] VITALS: BP 115/51
[2018-08-04 16:22] VITALS: BP 119/50
[2018-08-04 19:06] VITALS: BP 137/52
[2018-08-04] MEDS: MIRTAZAPINE 15 MG TABLET PO SCH (20:06)
[2018-08-04] MEDS: ALBUMIN (HUMAN) 25% 50 ML IV SCH (20:06)
[2018-08-04] MEDS: KETOROLAC TROMETHAMINE 15MG/ML IV PRN (22:22)
[2018-08-04 23:08] VITALS: BP 113/53
[2018-08-05 03:32] VITALS: BP 111/51
[2018-08-05 03:53] LABS: HEMATOCRIT 25.9 % (36-48); MEAN CORPUSCULAR HEMOGLOBIN 27.7 pg (27.0-33.0); MEAN CORPUSCULAR VOLUME 86.5 fL (79-99); PLATELET COUNT (AUTO) 235 K/uL (130-400); WHITE BLOOD COUNT (AUTO) 8.3 K/uL (4.8-10.8)
[2018-08-05 04:04] LABS: CREATININE 2.3 mg/dL (0.5-1.5); POTASSIUM 3.6 mmol/L (3.5-5.1)
[2018-08-05 04:21] LABS: B-TYPE NATRIURETIC PEPTIDE 1460 pg/mL (0-100)
[2018-08-05 04:39] LABS: % IRON SATURATION 6.5 % (22-44)
[2018-08-05] MEDS: INSULIN HUMULIN R 100 UNIT/ML 3ML SQ SCH ×4 (06:46→20:30)
[2018-08-05 07:40] VITALS: BP 127/62
[2018-08-05] MEDS: ALBUMIN (HUMAN) 25% 50 ML IV SCH ×2 (09:13→19:55)
[2018-08-05] MEDS: APIXABAN 2.5 MG TABLET PO SCH ×2 (09:15→19:54)
[2018-08-05] MEDS: BENZONATATE 100 MG CAPSULE PO SCH ×3 (09:15→19:56)
[2018-08-05] MEDS: CARVEDILOL 6.25 MG TABLET PO SCH ×2 (09:16→19:54)
[2018-08-05] MEDS: PANTOPRAZOLE SODIUM 40 MG TABLET.DR PO SCH (09:16)
[2018-08-05] MEDS: ALLOPURINOL 100 MG TABLET PO SCH (09:16)
[2018-08-05] MEDS ORDERED: COMPOUND IV MISC 1 EACH IVSOLN MISC PRN (09:30)
[2018-08-05] MEDS: IRON SUCROSE COMPLEX 100 MG in SODIUM CHLORIDE 0.9% 50 ML IV SCH (11:32)
[2018-08-05 11:37] VITALS: BP 118/47
[2018-08-05] MEDS ORDERED: POTASSIUM CHLORIDE 20 MEQ ERTAB PO SCH (15:15)
[2018-08-05] MEDS ORDERED: BUMETANIDE 1 MG TAB PO SCH (15:15)
[2018-08-05] MEDS: POTASSIUM CHLORIDE 20 MEQ ERTAB PO PRN (15:34)
[2018-08-05 16:06] VITALS: BP 112/46
[2018-08-05] MEDS: FUROSEMIDE 100 MG in SODIUM CHLORIDE 0.9% 90 ML IV SCH (17:16)
[2018-08-05] MEDS ORDERED: APIX2.5T PO (18:12)
[2018-08-05 19:44] VITALS: BP 120/57
[2018-08-05] MEDS: MIRTAZAPINE 15 MG TABLET PO SCH (19:54)
[2018-08-05 23:49] VITALS: BP 128/53
[2018-08-05] MEDS ORDERED: BUSPIRONE HCL 5 MG TABLET PO SCH (23:50)
[2018-08-05] MEDS: MORPHINE SULFATE 2 MG/ML 1ML SYG IVP PRN (23:59)
[2018-08-06 03:47] VITALS: BP 123/76
[2018-08-06 03:56] LABS: HEMATOCRIT 27.4 % (36-48); MEAN CORPUSCULAR HEMOGLOBIN 27.3 pg (27.0-33.0); MEAN CORPUSCULAR HGB CONC 31.9 g/dL (32.0-36.0); MEAN CORPUSCULAR VOLUME 85.8 fL (79-99); PLATELET COUNT (AUTO) 223 K/uL (130-400); RED BLOOD CELL COUNT(AUTO) 3.19 MIL/uL (4.00-5.50); RED CELL DISTRIBUTION WIDTH 21.1 % (11.0-15.5); WHITE BLOOD COUNT (AUTO) 8.5 K/uL (4.8-10.8)
[2018-08-06 03:57] LABS: POTASSIUM 3.6 mmol/L (3.5-5.1)
[2018-08-06 04:06] LABS: B-TYPE NATRIURETIC PEPTIDE 1560 pg/mL (0-100)
[2018-08-06] MEDS: INSULIN HUMULIN R 100 UNIT/ML 3ML SQ SCH ×3 (05:30→16:34)
[2018-08-06] MEDS: POTASSIUM CHLORIDE 20 MEQ ERTAB PO PRN (06:07)
[2018-08-06 07:13] VITALS: BP 134/61
[2018-08-06] MEDS: IRON SUCROSE COMPLEX 100 MG in SODIUM CHLORIDE 0.9% 50 ML IV SCH (08:36)
[2018-08-06] MEDS: CARVEDILOL 6.25 MG TABLET PO SCH (08:37)
[2018-08-06] MEDS: APIXABAN 2.5 MG TABLET PO SCH (08:37)
[2018-08-06] MEDS: ALLOPURINOL 100 MG TABLET PO SCH (08:37)
[2018-08-06] MEDS: BENZONATATE 100 MG CAPSULE PO SCH ×2 (08:37→13:11)
[2018-08-06] MEDS: PANTOPRAZOLE SODIUM 40 MG TABLET.DR PO SCH (08:37)
[2018-08-06] MEDS ORDERED: IRON SUCROSE COMPLEX 100 MG in SODIUM CHLORIDE 0.9% 50 ML IV SCH (09:00)
[2018-08-06 11:22] VITALS: BP 113/51
[2018-08-06] MEDS: FUROSEMIDE 100 MG in SODIUM CHLORIDE 0.9% 90 ML IV SCH (15:39)
[2018-08-06 16:14] VITALS: BP 132/59
== END 2018-08-06 20:12 | DRG 682 ==
LOC: EDH 18:21 → EDHIP 18:22 → 2DH 19:29
PROVIDERS: ADMIT Hospitalist; ATTEND Hospitalist
DX: N17.9 Acute kidney failure, unspecified (principal); J18.9 Pneumonia, unspecified organism; I50.43 Acute on chronic combined systolic (congestive) and diastolic (congestive) heart failure; I13.0 Hypertensive heart and chronic kidney disease with heart failure and stage 1 through stage 4 chronic kidney disease, or unspecified chronic kidney disease; E44.0 Moderate protein-calorie malnutrition; N18.4 Chronic kidney disease, stage 4 (severe); D50.9 Iron deficiency anemia, unspecified; I25.10 Atherosclerotic heart disease of native coronary artery without angina pectoris; I48.2 Chronic atrial fibrillation; E11.22 Type 2 diabetes mellitus with diabetic chronic kidney disease; F41.9 Anxiety disorder, unspecified; E78.5 Hyperlipidemia, unspecified; D63.1 Anemia in chronic kidney disease; R31.0 Gross hematuria; Z80.51 Family history of malignant neoplasm of kidney; Z80.6 Family history of leukemia; Z82.49 Family history of ischemic heart disease and other diseases of the circulatory system; Z83.3 Family history of diabetes mellitus; Z90.5 Acquired absence of kidney; Z95.1 Presence of aortocoronary bypass graft; Z95.810 Presence of automatic (implantable) cardiac defibrillator; Z91.81 History of falling; Z79.899 Other long term (current) drug therapy; Z79.4 Long term (current) use of insulin; Z68.31 Body mass index [BMI] 31.0-31.9, adult
CPT/HCPCS: 36415; 71045; 71101; 80048; 80053; 81003; 82948; 83036; 83540; 83550; 83735; 83880; 85025; 85027; 85610; 85730; 93005; J1756; J1815; J1885; J1940; P9047